=== PATIENT | male | born 1940 | race Caucasian/White ===

== ENCOUNTER 2019-07-29 08:09 | Outpatient (CLI) | payer MEDICARE, BC ==
[2019-07-29 08:32] LABS: Estimated GFR-MDRD - POC Greater than 90
--- NOTE | 2019-07-29 10:05 | CT ---
CT ABDOMEN AND PELVIS WITH IV CONTRAST: HISTORY: New diagnosis of malignant neoplasm of the prostate gland. FINDINGS: The lung bases are unremarkable. No calcified gallstones are seen. Multiple cysts are seen in the l iver. The spleen, pancreas, and adrenal glands are normal. There are cysts in the kidneys on both s ides, more numerous on the right. No free air, free fluid, or lymphadenopathy is seen in the abdomen or pelvis. There are vascular lovely cifications without evidence of aneurysmal dilatation of the abdominal aorta. The small bowel loops are not abnormally dilated. A normal-appearing appendix is present. The prostate is enlarged. Ther e are degenerative changes in the spine. No osteolytic or osteoblastic lesions are seen. IMPRESSION: 1. No evidence of metastatic disease. 2. Hepatic and renal cysts. 3. Prostatic enlargement. POS: [facility]
--- NOTE | 2019-07-29 12:29 | NM ---
Exam: Bone scan whole body: HISTORY: Malignant neoplasm of prostate gland FINDINGS: Patient was injected with 30.8 mCi technetium 99m MDP intravenously. Whole body images demonstrates b ilateral renal and bladder activity. Minimal contamination over the scrotum and perineum region. Mild degenerative type changes involving the shoulder joints and thoracic spine. No scan evidence for metastasis. IMPRESSION: No scan evidence for metastasis.
[2019-07-29] MEDS ORDERED: Iopamidol 370 76% 100 ML VIAL ONE (13:52)
== END 2019-07-29 08:10 | disposition home or self-care (01) ==
LOC: CT 08:09
PROVIDERS: ATTEND Urology
DX: C61 Malignant neoplasm of prostate (principal); N28.1 Cyst of kidney, acquired; K76.89 Other specified diseases of liver; N40.0 Benign prostatic hyperplasia without lower urinary tract symptoms
CPT/HCPCS: 74177; 78306; 82565; A9503; Q9967

== ENCOUNTER 2020-07-04 14:59 | Outpatient (CLI) | payer MEDICARE, BC ==
[~2020-07-04 14:59] MED LIST: Iopamidol 370 76% 100 ML VIAL ONE
[2020-07-04 15:39] LABS: Estimated GFR-MDRD - POC Greater than 90
--- NOTE | 2020-07-04 16:14 | CT ---
EXAM: CT ANGIOGRAM OF THE NECK INDICATION: Evaluate for stenosis. COMPARISON: None TECHNIQUE: CT angiogram of the neck are performed in the axial plane. Three-dimensional reformatted i mages are submitted for interpretation. FINDINGS: POSTCONTRAST SOFT TISSUE NECK CT: Aerodigestive tract:Aerodigestive tract is patent. No mucosal abnormality. Sinuses: Adequate aeration. Orbits: Bilateral ocular lenses implants are appropriately located. Both globes are intact. Retrobulb ar fat is preserved. Symmetric attenuation the optic nerves and ocular rectus muscles. Salivary glands:Symmetric attenuation of the salivary glands. Thyroid gland: Unremarkable. Lymph nodes: No evidence of lymphadenopathy by size criteria. Paraspinal muscles: Symmetric attenuation of the sternocleidomastoid muscles. Appropriate attenuation of the paraspinal muscles. Cervical spine:Vertebral body height is maintained. No fracture. No significant central canal stenosi s or significant neural foraminal narrowing. Limited evaluation by technique. Upper mediastinum and lung apices: Chronic changes are suspected with nonspecific groundglass opaciti es. CTA OF THE NECK WITH CONTRAST: Aorta: Appropriate enhancement and luminal diameter. Right carotid artery: There is appropriate enhancement and luminal diameter of the origin of the righ t carotid artery, innominate artery and carotid bifurcation. There is short segment severe stenosis involving the proximal right internal carotid artery predominantly due to noncalcified plaque. The mi d and distal right internal carotid artery have appropriate enhancement diameter. Left carotid: Appropriate enhancement and luminal diameter. No significant stenosis based upon NASCET criteria. Subclavian arteries:Symmetric and patent. Vertebral arteries:Patent throughout their course in the neck. Right vertebral artery is dominant. IMPRESSION: Short segment severe stenosis involving the proximal right internal carotid artery. Findings conveyed to Dr. Andrews via [facility] on 07/04/2020 at 4:13 PM Code CR Transcribed Date/Time: 07/04/2020 4:51 PM
== END 2020-07-04 15:00 | disposition home or self-care (01) ==
LOC: BICCT 14:59
PROVIDERS: ATTEND Internal Medicine Cardiovascular Disease
DX: R09.89 Other specified symptoms and signs involving the circulatory and respiratory systems (principal); I65.21 Occlusion and stenosis of right carotid artery
CPT/HCPCS: 70498; 82565; Q9967

== ENCOUNTER 2022-05-14 09:01 | Outpatient (CLI) | payer MEDICARE, BC | END 2022-05-14 09:02 | disposition home or self-care (01) | LOC: BICMAMMO 09:01 | PROVIDERS: ATTEND Internal Medicine Hematology & Oncology | DX: Z13.820 Encounter for screening for osteoporosis (principal); M81.0 Age-related osteoporosis without current pathological fracture; M85.851 Other specified disorders of bone density and structure, right thigh; M85.852 Other specified disorders of bone density and structure, left thigh; Z79.818 Long term (current) use of other agents affecting estrogen receptors and estrogen levels | CPT/HCPCS: 77080 ==

== ENCOUNTER 2024-09-02 09:11 | Outpatient (CLI) | payer MEDICARE | END 2024-09-02 09:12 | disposition home or self-care (01) | LOC: BICMAMMO 09:11 | PROVIDERS: ATTEND Internal Medicine Hematology & Oncology | DX: M81.8 Other osteoporosis without current pathological fracture (principal); C61 Malignant neoplasm of prostate; M85.89 Other specified disorders of bone density and structure, multiple sites | CPT/HCPCS: 77080 ==